=== PATIENT | female | born 1965 | race Caucasian/White ===

== ENCOUNTER 2016-09-11 09:02 | Emergency (ER) | payer OTHER ==
[~2016-09-11] VITALS: Ht 162.6 cm; Wt 117.9 kg
[~2016-09-11 09:02] MED LIST: AMBIEN10 M1 PO; B-121000 MC3 PO; CALCIUM500 M2 PO; CELEXA20 M1 PO; CO Q-10100 MG PO; DAILY MULTIPLE1 EACH PO; FISH OIL 1,0001 EACH PO; GABAPENTIN300 M2 PO; INVEGA6 MG PO; JANUMET 50-1,01 EACH PO; JARDIANCE25 M1 PO; LIPITOR10 M1 PO; NEXIUM20 M1 PO; SINGULAIR10 M1 PO; VITAMIN C500 M8 PO; VITAMIN D1000 UNIT PO; WELCHOL625 MG PO; WELLBUTRIN XL300 M2 PO
[2016-09-11 09:09] VITALS: BP 145/74
--- NOTE | 2016-09-11 09:11 | ED SKIN/ALLERGY COMPLAINT ---
History of Present Illness General Chief Complaint: General Adult Stated Complaint: WOUND TO ABDOMEN ?INFECTED Source: patient, old records, friend Exam Limitations: no limitations Vital Signs & Intake/Output Vital Signs & Intake/Output Vital Signs Date Time Temp Pulse Resp B/P B/P Pulse O2 O2 Flow FiO2 Mean Ox Delivery Rate 09/11 0909 98.0 78 18 145/74 99 Room Air Allergies Coded Allergies: carboplatin (Severe, ANAPHYLAXIS 07/11/15) ciprofloxacin (From CIPRO) (SWELLING AND ITCHING 07/11/15) codeine (SWELLING AND ITCHING 07/11/15) egg (UNKNOWN 07/11/15) iodine (UNKNOWN 07/11/15) Reconcile Medications Amoxicillin 875 MG TABLET 1 TAB PO BID wound infection Ascorbic Acid (Vitamin C) (Unknown Strength) TABLET (Unknown Dose) PO DAILY SUPPLEMENT (Reported) Atorvastatin Calcium (Lipitor) 10 MG TABLET 1 TAB PO DAILY CHOLESTEROL ( Reported) Bupropion HCl (Wellbutrin XL) 300 MG TAB.ER.24H 1 TAB PO DAILY MENTAL HEALTH (Reported) Calcium Carbonate (Calcium) (Unknown Strength) TAB.CHEW (Unknown Dose) PO DAILY SUPPLEMENT (Reported) Cholecalciferol (Vitamin D3) (Vitamin D) 1,000 UNIT TABLET 1 TAB PO DAILY SUPPLEMENT (Reported) Citalopram Hydrobromide (Celexa) 20 MG TABLET 1 TAB PO DAILY MENTAL HEALTH ( Reported) Colesevelam Hydrochloride (Welchol) 625 MG TABLET 3 TAB PO DAILY UNKNOWN ( Reported) Cyanocobalamin (Vitamin B-12) (B-12) 1,000 MCG TABLET 1 TAB PO DAILY SUPPLEMENT (Reported) Empagliflozin (Jardiance) 25 MG TABLET 1 TAB PO DAILY DIABETES (Reported) Esomeprazole Magnesium (Nexium) 20 MG CAPSULE.DR 1 CAP PO DAILY GI (Reported) Fenofibrate 160 MG TABLET 1 TAB PO DAILY CHOLESTEROL (Reported) Gabapentin 300 MG CAPSULE 1 CAP PO TID MENTAL HEALTH (Reported) Montelukast Sodium (Singulair) 10 MG TABLET 1 TAB PO DAILY ALLERGIES ( Reported) Multivitamin (Daily Multiple Vitamin) 1 EACH TABLET 1 TAB PO DAILY SUPPELMENT (Reported) [place]-3 Fatty Acids/Fish Oil (Fish Oil 1,000 MG Capsule) 340 MG-1,000 MG CAPSULE 1 CAP PO TID SUPPLEMENT (Reported) Paliperidone (Invega) 6 MG TAB.ER.24 2 TAB PO DAILY MENTAL HEALTH (Reported) Sitagliptin Phos/Metformin HCl (Janumet 50-1,000 MG Tablet) 50 MG-1,000 MG TABLET 1 TAB PO BID DIABETES (Reported) Sulfamethoxazole/Trimethoprim (Bactrim Ds Tablet) 800 MG-160 MG TABLET 1 TAB PO BID INFECTION Ubidecarenone (Co Q-10) 100 MG CAPSULE 1 CAP PO DAILY SUPPLEMENT (Reported) Zolpidem Tartrate (Ambien) 10 MG TABLET 0.5 TAB PO QPM SLEEP (Reported) Triage Note: pt to ed for acute infection of a chronic abd wound, pt reporting she has had the abd wound for approx 4 years (self manages, has not seen wound center) and noticed this am that wound appeared to have "yellow drainage" denies fever, weakness, n/v/d. stating she feels well otherwise. Triage Nurses Notes Reviewed? yes HPI: Patient is a 51-year-old female with past medical history of diabetes and chronic abdominal wound presents complaining of possible infection to the abdominal wound. Patient reports that wound has been present for at least 4-5 years. Over the past 1 week patient has noticed increasing discharge from the area. Drainage was worse today. Drainage is whitish and sometimes has a yellow tinge to it. Patient has chronic diffuse abdominal pain, no significant change to her abdominal pain. Patient has seen multiple doctors and surgeons who has told her that it will take time for the wound to heal. Patient denies fevers, chills, nausea, vomiting, redness spreading from the wound. (RADHA RODRIGUEZ) Past History Travel History Traveled to [place] past 21 day No Medical History Any Pertinent Medical History? see below for history Neurological: NONE EENT: cataracts Cardiovascular: NONE Respiratory: sleep apnea Gastrointestinal: NONE Hepatic: NONE Renal: NONE Musculoskeletal: NONE Psychiatric: depression anxiety schizo affective d/o Endocrine: type 2 diabetes Blood Disorders: NONE Cancer(s): ovarian ca (remission) Pneumonia Vaccine: 03/11/09 Influenza Vaccine: 02/08/06 Surgical History Surgical History: hysterectomy, multiple hernia surgeries Psychosocial History Who do you live with Patient/Self Services at Home Nursing What is your primary language Kinyarwanda Tobacco Use: Current Daily Use Daily Tobacco Use Amount/Type: => 5 Cigarettes daily ETOH Use: denies use Illicit Drug Use: denies illicit drug use Family History Hx Contributory? No (RADHA RODRIGUEZ) Review of Systems Review of Systems Constitutional: Denies: chills, fever. EENTM: Reports: no symptoms. Respiratory: Reports: no symptoms. Cardiovascular: Reports: no symptoms. GI: Reports: see HPI. Genitourinary: Reports: no symptoms. Musculoskeletal: Reports: no symptoms. Skin: Reports: see HPI. Neurological/Psychological: Reports: no symptoms. Hematologic/Endocrine: Reports: other (hx diabetes). Immunologic/Allergic: Reports: no symptoms. (RADHA RODRIGUEZ) Physical Exam Physical Exam General Appearance: well developed/nourished, alert, awake, obese Head: atraumatic, normal appearance Eyes: Bilateral: normal appearance. Ears, Nose, Throat: hearing grossly normal Neck: normal inspection, supple, full range of motion Respiratory: no respiratory distress Gastrointestinal: 4.5 cm x 4.5 cm wound to the mid abdomen. No surrounding erythema or induration. Small amount of granulation tissue present in the wound. No areas of necrosis. Minimal lightly tinged yellow discharge from the wound. Back: normal inspection, normal range of motion Extremities: normal inspection, normal capillary refill, normal range of motion Neurologic/Psych: awake, alert, oriented x 3, normal gait Skin: see abdominal exam, see diagram Diagram Chest, Abdomen, Back: 1) 4.5 cm x 4.5 cm wound that extends through the epidermal layer to the superficial dermal layer. surrounding chronic skin hyperpigmentation. No surrounding erythema or induration (RADHA RODRIGUEZ) Progress Differential Diagnosis: abscess/cellulitis, intra-abdominal infection, necrotizing fasciitis Plan of Care: Orders Procedure Date/time Status LACTIC ACID 09/12 923 Complete COMPREHENSIVE METABOLIC PANEL 09/12 923 Complete CBC WITHOUT DIFFERENTIAL 09/12 923 Complete Laboratory Tests 09/11/16 0955: Anion Gap 12, Estimated GFR > 60, BUN/Creatinine Ratio 17.1, Glucose 126 H, Lactic Acid 2.8 H, Calcium 8.8, Total Bilirubin 0.3, AST 22, ALT 36, Alkaline Phosphatase 96, Total Protein 6.4, Albumin 3.4 L, Globulin 3.0, Albumin/ Globulin Ratio 1.1, CBC w Diff NO MAN DIFF REQ, RBC 4.32, MCV 84.2, MCH 27.4, RDW 15.5 H, MPV 7.5, Gran % 59.5, Lymphocytes % 29.5, Monocytes % 6.4, Eosinophils % 3.5, Basophils % 1.1, Absolute Granulocytes 4.5, Absolute Lymphocytes 2.2, Absolute Monocytes 0.5, Absolute Eosinophils 0.3, Absolute Basophils 0.1, PUBS MCHC 32.5 L 09/11/2016 10:50:18 AM: Results of labs discussed with patient. Elevated lactic acid, patient afebrile, nontoxic-appearing, normal white blood cell count, no significant tenderness to the area. I feel that patient is stable for discharge with oral antibiotics and close follow up with the wound care clinic and her primary care doctor. Signs and symptoms to monitor for regarding infection and returning to the emergency department were discussed with patient. (RADHA RODRIGUEZ) Departure Departure Time of Disposition: 1044 Disposition: HOME OR SELF CARE Condition: Stable Clinical Impression Primary Impression: Wound infection Secondary Impressions: Elevated lactic acid level Referrals: LAURA LEVIN MD (PCP/Family) Additional Instructions: Follow up with the [facility] wound care clinic. Call today for appointment. Also follow up with your primary doctor for further evaluation. Return to the ER if redness spreading from the borders of the wound, fevers, any areas of black develop to the wound, or worsening of symptoms. Departure Forms: Customer Survey General Discharge Information Prescriptions: Current Visit Scripts Amoxicillin 1 TAB PO BID #14 TAB Sulfamethoxazole/Trimethoprim (Bactrim Ds Tablet) 1 TAB PO BID #14 TAB (RADHA RODRIGUEZ) PA/BLUE CRABBER Co-Sign Statement Statement: ED Attending supervision documentation- [] I saw and evaluated the patient. I have also reviewed all the pertinent lab results and diagnostic results. I agree with the findings and the plan of care as documented in the PA's/BLUE CRABBER's documentation. [X] I have reviewed the ED Record and agree with the PA's/BLUE CRABBER's documentation. [] Additions or exceptions (if any) to the PAs/BLUE CRABBER's note and plan are summarized below: [] (CURTIS MORALES DO)
[2016-09-11] MEDS ORDERED: FENOFIBRATE160 M1 PO (09:54)
[2016-09-11 10:02] LABS: ABSOLUTE BASOPHIL COUNT 0.1 /CUMM (0.0-0.2); ABSOLUTE EOSINOPHIL COUNT 0.3 /CUMM (0.0-0.7); ABSOLUTE GRANULOCYTE CT 4.5 /CUMM (1.4-6.5); ABSOLUTE LYMPH COUNT 2.2 /CUMM (1.2-3.4); ABSOLUTE MONOCYTE COUNT 0.5 /CUMM (0.10-0.60); BASOPHIL % 1.1 % (0.0-2.0); EOSINOPHIL % 3.5 % (0-5); GRANULOCYTE % 59.5 % (42.2-75.2); HEMATOCRIT 36.3 % (37-47); MEAN CORPUSCULAR HGB 27.4 PG (27.0-31.0); MEAN CORPUSCULAR HGB CONC 32.5 G/DL (33.0-37.0); MEAN CORPUSCULAR VOLUME 84.2 FL (81.0-99.0); MEAN PLATELET VOLUME 7.5 FL (7.4-10.4); PLATELET COUNT 390 /CUMM (130-400); RBC DISTRIBUTION WIDTH 15.5 % (11.5-14.5); RED BLOOD CELL CT 4.32 /CUMM (4.20-5.40); WHITE BLOOD CELL COUNT 7.5 /CUMM (4.8-10.8)
[2016-09-11] MEDS ORDERED: BACTRIM DS TAB1 EACH PO (10:46)
[2016-09-11] MEDS ORDERED: AMOXICILLIN875 M1 PO (10:46)
== END 2016-09-11 10:58 ==
LOC: ERH 09:02
PROVIDERS: Physician Assistant
DX: S31.109A Unspecified open wound of abdominal wall, unspecified quadrant without penetration into peritoneal cavity, initial encounter (principal); L08.9 Local infection of the skin and subcutaneous tissue, unspecified; R74.0 Nonspecific elevation of levels of transaminase and lactic acid dehydrogenase [LDH]

== ENCOUNTER → 2016-11-14 | Day surgery (SDC) | payer OTHER ==
[~2016-11-14] VITALS: Ht 162.6 cm; Wt 117.9 kg
[~2016-11-14] MED LIST changes: +AMOXICILLIN875 M1 PO; +BACTRIM DS TAB1 EACH PO; +FENOFIBRATE160 M1 PO; +LINZESS145 MC1 PO; +ZYRTEC10 M3 PO
--- NOTE | 2016-11-14 14:18 | Operative Report ---
Operative/Inv Procedure Report Surgery Date: 11/14/16 Name of Procedure: Excision of abdominal wall wound centimeterschronic closure 23 cm abdominal wall Pre-Operative Diagnosis: Abdominal wound postop complication Post-Operative Diagnosis: Same Estimated Blood Loss: scant Surgeon/Mainframe Developer: ELIZABETH NORTON MD Anesthesia: moderate sedation Operative/Procedure Note Note: Patient has had remote intra-abdominal surgery, located by chronic abdominal wall wound. This was previously excised and closed but recurred. Patient wears undergarments tightly in the area of the repair. She has had a chronic wound that has not been responsive to local wound care in the wound care center. We have talked about excision and closure. Patient accepts the procedure the alternatives the risks and expected outcomes as chosen to proceed. No guarantees were given in regards to success. She signed informed consent. She was taken to the operating room placed supine on the table intravenous sedation antibiotics were given the abdomen was prepped and draped in usual sterile fashion. Elliptical incision was carried around the lesion for the dimensions described above. It was removed down into the subcutaneous layer. Additional fibrotic base was then further excised. Extensive undermining was done in all directions and tension-free closure was performed with 3 layers for the dimensions described above. Aisha were placed within the skin. Ends dictation
== END ==
LOC: STS 01:28
DX: T81.89XA Other complications of procedures, not elsewhere classified, initial encounter (principal); L98.491 Non-pressure chronic ulcer of skin of other sites limited to breakdown of skin; E11.9 Type 2 diabetes mellitus without complications; Z79.84 Long term (current) use of oral hypoglycemic drugs; E66.9 Obesity, unspecified; Z85.43 Personal history of malignant neoplasm of ovary; D64.9 Anemia, unspecified
CPT/HCPCS: J0131; J0690; J2250; J2405

== ENCOUNTER 2017-09-09 02:36 | Inpatient (IN) | payer OTHER ==
[~2017-09-09] VITALS: Ht 162.6 cm; Wt 114.1 kg
[~2017-09-09 02:36] MED LIST changes: +PROAIR HFA8.5 GM INH
--- NOTE | 2017-09-09 16:09 | Operative Report ---
Operative/Inv Procedure Report Surgery Date: 09/09/17 Name of Procedure: Laparoscopic Sleeve Gastrectomy Pre-Operative Diagnosis: Morbid Obesity BMI 47, DM, BOBO, Hyperlipidemia Post-Operative Diagnosis: Same Estimated Blood Loss: less than 50ml Surgeon/Dental Laboratory Manager: John Beyer DO Anesthesia: general endotracheal tube IV Fluids: 1000 cc Drains: None Specimens: Stomach Complications: None Condition: Stable Operative Indication: This is a 52-year-old female that presented to the office for workup for bariatric surgery. After appropriate workup was completed I discussed with the patient the band, the sleeve, and the gastric bypass. The patient chose to undergo a sleeve gastrectomy. All risks including but not limited to bleeding, infection, leak, stricture, injury to surrounding bowel/esophagus/stomach/liver/ spleen, long-term reflux, DVT/PE, and mortality of 05/999 patients were discussed in detail. The patient understood everything and decided to proceed. Operative/Procedure Note Note: The patient was brought to the operating room and placed on the operating room table in supine position. Venodyne stockings were placed and adequate general endotracheal anesthesia was obtained. The patient was prepped and draped in standard surgical fashion. Began the procedure by making a 2 cm transverse incision supraumbilically and slightly to the left of the midline. Then using a 12 mm clear Visiport and a 10 mm 0 laparoscope, the abdominal cavity was accessed. Great care was taken to go through the anterior rectus sheath, the posterior rectus sheath, and through the peritoneum. Once we entered the peritoneum the abdominal cavity was insufflated to 15 mmHg. Upon initial examination no obvious gross pathology was seen. The patient did have a very large liver. Accessory trocars were placed, 5 mm in the epigastrium for the Tom liver retractor. The retractor was inserted and the liver was retracted anteriorly exposing the hiatus, no hiatal hernia was seen. 5 mm ports were placed in the right and left upper quadrant, a 5 mm left lateral port, and a 15 mm right lateral port. Began the procedure by mobilizing the greater curvature of the stomach approximately 7 cm from the pylorus. Once the retrogastric space was reached the whole greater curvature was mobilized maintaining hemostasis using Harmonic scalpel. Full hiatal dissection was performed, no hiatal hernia was seen. Posterior adhesions were taken down using Harmonic scalpel as well. Once the stomach was adequately mobilized a 38 [place] bougie was inserted and placed along the lesser curvature of the stomach. Once the bougie was in the appropriate position we began creating our sleeve, two 60 mm black staple loads with seamguard followed by three 60 mm purple staple loads with seamguard as well and finished with a 45 mm purple plain load. Great care was taken to leave ample room at the incisura angularis, to prevent any twisting or kinking of the sleeve, to stay lateral to the esophagogastric fat pad, and to do a full fundal excision. At the completion of the staple line the staple line was examined, it appeared intact and some bleeding was noted and controlled with endoclips. The bougie was removed, the sleeve was lying nicely without any twisting or kinking. The resected stomach was removed through the right lateral port site. The port and the left upper quadrant were irrigated until clear. All ports were removed under direct visualization no obvious bleeding was noted. The 15 mm port site fascia was closed using 0 Vicryl suture. The skin was closed using 4-0 Monocryl. Steri-Strips and dressings were placed. The patient was successfully extubated and transferred to the recovery room in stable condition. The patient tolerated the procedure well with no complications. Findings: No hiatal hernia, 38 Fr bougie CC: Bg Anthony MD
--- NOTE | 2017-09-09 16:19 | Surg Short-stay <48hrs Dis Sum ---
Visit Information Visit Dates Admission Date: 09/09/17 Discharge Date: 09/10/17 Surgical Short Stay DC Summary Admission Diagnosis: Morbid Obesity (BMI 47), DM, BOBO, Hyperlipidemia Final Diagnosis: SAME ABOVE, S/P Surgery Date: 09/09/17 Name of Procedure: Laparoscopic Sleeve Gastrectomy Procedure(s): Surgery Date: 09/09/17 Name of Procedure: Laparoscopic Sleeve Gastrectomy Summary/Significant Findings: Electively scheduled laparoscopic sleeve gastrectomy on 09/09/17 by for history of morbid obesity (BMI 47), DM, BOBO, and Hyperlipidemia. Started on a stage 1 bariatric diet post-operatively. Pain control transitioned from iv to oral medication. Accuchecks monitored with sliding scale coverage as needed, while her home meds for diabetes were intentionally stopped. No lovenox teaching necessary according to her pre-operative risk assessment. Condition at Discharge: stable Discharge Disposition: home or self care Discharge instructions provided to patient/family: Yes Post discharge follow-up plan: one week follow up with Copies to: Bg Anthony MD
--- NOTE | 2017-09-09 16:23 | Patient Discharge Instructions ---
Discharge Instructions General Discharge Information You were seen/treated for: Morbid Obesity (BMI 47), DM, BOBO, Hyperlipidemia You had these procedures: Surgery Date: 09/09/17 Name of Procedure: Laparoscopic Sleeve Gastrectomy Watch for these problems: fever>101.3, increased pain, redness/swelling/drainage, dizziness, shortness of breath, chest pains. No bath, but you may shower: Yes Other wound care: ok to remove outer dressings. leave white steri strips in place. keep incisions clean & dry. Diet Continue normal diet: No Recommended Diet: Bariatric Additional DIET Information: weekly bariatric stage diet advancement as tolerated, as directed Activity Full Activity/No Limits: No Activity Self Limited: Yes Pounds, do NOT lift more than: 10 Additional ACTIVITY Info: walk frequently Acute Coronary Syndrome Inclusion Criteria At DC or during hospital stay patient has or had the following: ACS DIAGNOSIS No Discharge Core Measures Meds if any: Prescribed or Continued at Discharge Meds if any: NOT Prescribed or Continued at Discharge Congestive Heart Failure Inclusion Criteria At DC or during hospital stay patient has or had the following: CHF DIAGNOSIS No Discharge Core Measures Meds if any: Prescribed or Continued at Discharge Meds if any: NOT Prescribed or Continued at Discharge Cerebrovascular accident Inclusion Criteria At DC or during hospital stay patient has or had the following: CVA/TIA Diagnosis No Discharge Core Measures Meds if any: Prescribed or Continued at Discharge Meds if any: NOT Prescribed or Continued at Discharge Venous thromboembolism Inclusion Criteria VTE Diagnosis No VTE Type NONE VTE Confirmed by (Test) NONE Discharge Core Measures - Per Current guidelines, there needs to be overlap - treatment for the first 5 days of Warfarin therapy. - If discharged on Warfarin prior to 5 days of - overlap therapy, the patient will need to be - assessed for post discharge needs including - *Post discharge parental anticoagulation - *Warfarin and/or parental anticoagulation education - *Follow up date to check INR post discharge At least 5 days overlap therapy as Inpatient No Meds if any: Prescribed or Continued at Discharge Note: Overlap Therapy is Warfarin and Anticoagulant Meds if any: NOT Prescribed or Continued at Discharge
[2017-09-09] MEDS ORDERED: OXYCODONE HCL5 M1 PO (16:26)
--- NOTE | 2017-09-09 16:28 | Admission Core Measures ---
Acute Coronary Syndrome (CM) ACS Core Measures Acute Coronary Syndrome Diagnosis No Congestive Heart Failure (NEW) CHF Core Measures Congestive Heart Failure Diagnosis No Cerebrovascular Accident (NEW) CVA Core Measures CVA/TIA Diagnosis No Venous Thromboembolism VTE Core Alyssa (View Protocol) VTE Risk Factors Surgery No Mechanical VTE Prophylaxis d/t N/A MechProphylax Ordered No VTE Pharm Prophylaxis d/t NA PharmProphylax ordered Problem List As ranked by this Provider includes Assessment & Plan 1. S/P laparoscopic sleeve gastrectomy 2. Sleep apnea 3. Diabetes 4. Morbid obesity HOME MEDS Home Med List Albuterol Sulfate (Proair Hfa) 90 MCG HFA.AER.AD 2 PUF INH Q4-6 PRN PRN COPD (Reported) Atorvastatin Calcium (Lipitor) 10 MG TABLET 1 TAB PO DAILY CHOLESTEROL ( Reported) Bupropion HCl (Wellbutrin XL) 300 MG TAB.ER.24H 1 TAB PO DAILY MENTAL HEALTH (Reported) Calcium Carbonate (Calcium) (Unknown Strength) TAB.CHEW (Unknown Dose) PO DAILY SUPPLEMENT (Reported) Cholecalciferol (Vitamin D3) (Vitamin D) 1,000 UNIT TABLET 1 TAB PO DAILY SUPPLEMENT (Reported) Citalopram Hydrobromide (Celexa) 20 MG TABLET 1 TAB PO DAILY MENTAL HEALTH ( Reported) Colesevelam Hydrochloride (Welchol) 625 MG TABLET 3 TAB PO DAILY UNKNOWN ( Reported) Empagliflozin (Jardiance) 25 MG TABLET 1 TAB PO DAILY DIABETES (Reported) Esomeprazole Magnesium (Nexium) 20 MG CAPSULE.DR 1 CAP PO DAILY GI (Reported) Fenofibrate 160 MG TABLET 1 TAB PO DAILY CHOLESTEROL (Reported) Gabapentin 300 MG CAPSULE 1 CAP PO TID MENTAL HEALTH (Reported) Linaclotide (Linzess) 145 MCG CAPSULE 1 CAP PO DAILY PRN CONSTIPATION ( Reported) Montelukast Sodium (Singulair) 10 MG TABLET 1 TAB PO DAILY ALLERGIES ( Reported) Multivitamin (Daily Multiple Vitamin) 1 EACH TABLET 1 TAB PO DAILY SUPPELMENT (Reported) Oxycodone HCl 5 MG TABLET 1-2 TAB PO Q4-6 PRN PRN pain control Paliperidone (Invega) 6 MG TAB.ER.24 2 TAB PO DAILY MENTAL HEALTH (Reported) Sitagliptin Phos/Metformin HCl (Janumet 50-1,000 MG Tablet) 50 MG-1,000 MG TABLET 1 TAB PO BID DIABETES (Reported) Zolpidem Tartrate (Ambien) 10 MG TABLET 0.5 TAB PO QPM SLEEP (Reported)
[2017-09-09 17:30] VITALS: BP 162/82
--- NOTE | 2017-09-09 19:59 | PN- General Surgery ---
Subjective Subjective: POC feeling ok, taking some liquids. +void x2. no cp/sob. some nausea, improving. no vomiting. no flatus/bm Objective Vital Signs and I&Os Vital Signs Date Time Temp Pulse Resp B/P B/P Pulse O2 O2 Flow FiO2 Mean Ox Delivery Rate 09/09 1730 97.9 78 19 162/82 94 Nasal 3.0L Cannula 09/09 1700 94 Nasal 3.0L Cannula 09/09 1700 94 Nasal 3.0L Cannula Physical Exam: GEN- NAD CARD- S1S2 RRR PULM- CTAB ABD- soft, obese,ttp bl uq, incisions dressed wtih scant serosang staining, +bs EXT-calves soft nt, alps on bl Assessment/Plan Assessment/Plan A- POD0 sp lap sleeve gastrectomy, with mild nausea, otherwise stable. P- prn pain meds stg 1 diet tonight, then npo p mn for ?ugi in am titrate o2 off hold home dm meds, riss per fs ancef x23hr postop oob, ambulate hep sq, alps will dw attending Core Measures Venous Thromboembolism VTE Risk Factors Surgery No Mechanical VTE Prophylaxis d/t N/A MechProphylax Ordered No VTE Pharm Prophylaxis d/t NA PharmProphylax ordered
[2017-09-09 21:30] VITALS: BP 128/70
[2017-09-10 06:32] VITALS: BP 130/78
--- NOTE | 2017-09-10 08:07 | PN- Bariatrics ---
See Addendum Subjective Subjective: Pt. reports mild nausea over night. No emesis. Did not take much liquids. States she is fairly comfortable, passing flatus. Objective Vital Signs and I&Os Vital Signs Date Time Temp Pulse Resp B/P B/P Pulse O2 O2 Flow FiO2 Mean Ox Delivery Rate 09/11 631 98.5 67 20 130/78 93 Nasal 4.0L Cannula 09/10 0000 CPAP 09/09 2214 Nasal 3.0L Cannula 09/09 2200 94 CPAP 09/09 2130 97.9 72 19 128/70 93 Nasal 4.0L Cannula 09/09 1730 97.9 78 19 162/82 94 Nasal 3.0L Cannula 09/09 1700 94 Nasal 3.0L Cannula 09/09 1700 94 Nasal 3.0L Cannula Intake & Output 09/10 1600 09/10 0800 / 0000 / 1600 09/09 0800 09/09 0000 Intake Total 750 1565 Output Total 400 1175 Balance 350 390 Intake, IV 750 1250 Intake, Oral 315 Output, Urine 400 1175 Patient 252 lb 259 lb Weight Weight Bed scale Measurement Method Alert, appropriate, no distress. Lungs are clear bilat. Heart regular Abdomen obese with multiple old well healed scars. Port sites with dressings are clean, dry. No active bleeding. Extr. without edema. Assessment/Plan Assessment/Plan 52 y o female with morbid obesity and multiple med. hx , s/p lap. gastric sleeve POD#1. Stable hemodynamics, afebrile. Abdominal exam is as expected, soft without tenderness, port sites without infection. Has c/o nausea, awaiting UGI this morning. If unremarkable, then will initiate stage 1 diet and hep lock IVF. Blood sugars are stable, 156, 154. Pain meds. as needed. Increase ambulation. Discharge home this afternoon if continues to di well. Pt. has script for Lovenox at home Core Measures Venous Thromboembolism VTE Risk Factors Surgery No Mechanical VTE Prophylaxis d/t N/A MechProphylax Ordered No VTE Pharm Prophylaxis d/t NA PharmProphylax ordered
[2017-09-10 09:48] LABS: ABSOLUTE BASOPHIL COUNT 0 /CUMM (0.0-0.2); ABSOLUTE EOSINOPHIL COUNT 0.1 /CUMM (0.0-0.7); ABSOLUTE GRANULOCYTE CT 5.3 /CUMM (1.4-6.5); ABSOLUTE LYMPH COUNT 2.6 /CUMM (1.2-3.4); ABSOLUTE MONOCYTE COUNT 0.7 /CUMM (0.10-0.60); BASOPHIL % 0.3 % (0.0-2.0); EOSINOPHIL % 0.8 % (0-5); GRANULOCYTE % 61.1 % (42.2-75.2); HEMATOCRIT 38.2 % (37-47); MEAN CORPUSCULAR HGB 27.9 PG (27.0-31.0); MEAN CORPUSCULAR HGB CONC 32.7 G/DL (33.0-37.0); MEAN CORPUSCULAR VOLUME 85.3 FL (81.0-99.0); MEAN PLATELET VOLUME 8.4 FL (7.4-10.4); PLATELET COUNT 364 /CUMM (130-400); RBC DISTRIBUTION WIDTH 15.9 % (11.5-14.5); RED BLOOD CELL CT 4.48 /CUMM (4.20-5.40); WHITE BLOOD CELL COUNT 8.6 /CUMM (4.8-10.8)
--- NOTE | 2017-09-10 12:31 | RADIOLOGY REPORT ---
EXAMINATION: FL UPPER GI SERIES CLINICAL INFORMATION: 52-year-old female with sleeve gastrectomy, postop day 1. Gastrografin upper GI is requested to rule out leak. COMPARISON: None TECHNIQUE: A single contrast upper GI series with fluoroscopy and spot imaging was performed. The patient ingested Gastrografin without difficulty and was evaluated in the upright and recumbent positions. FINDINGS: The security representative radiograph shows postsurgical changes within the left upper quadrant of the abdomen. Few surgical clips are also noted at right lower abdomen and within the visualized part of the pelvis. Intermittent small sliding hiatal hernia is noted. The contrast was seen to flow from the esophagus into the residual stomach without any difficulty. Mild delayed clearance of the contrast was noted from the fundus to the rest of the residual stomach. Subsequently, the contrast was seen to pass from the stomach into the duodenum and eventually into the proximal small bowel loops. There is no evidence of any contrast extravasation noted. FLUOROSCOPY TIME: 52 seconds NUMBER OF IMAGES: 9 sequences IMPRESSION: 1. Mild delayed clearance of contrast was noted from the fundus to the rest of the residual stomach. 2. No evidence of any contrast leak.
[2017-09-10 14:45] VITALS: BP 124/70
[2017-09-10] MEDS ORDERED: OXYCODONE HCL5 M1 PO (15:02)
== END 2017-09-10 15:50 | DRG 621 ==
LOC: SDA 02:36 → 2NB 02:36 → ENRESERV 16:01 → ENTRNSPT 16:51 → EDTRNSPT 17:00 → EDTRNSPTSTS 17:00 → 2NB 17:03 → CMPTRNSPT 17:12 → ENPENDDIS 09-10 14:10 → 2NB 09-10 15:50
PROVIDERS: Physician Assistant
PROC: 3E0T3BZ Introduction of Anesthetic Agent into Peripheral Nerves and Plexi, Percutaneous Approach (ICD-10-PCS; principal; 2017-09-09)
PROC: 0DB64Z3 Excision of Stomach, Percutaneous Endoscopic Approach, Vertical (ICD-10-PCS; principal; 2017-09-09)
DX: E66.01 Morbid (severe) obesity due to excess calories (principal); E11.9 Type 2 diabetes mellitus without complications; Z68.41 Body mass index [BMI] 40.0-44.9, adult; Z79.51 Long term (current) use of inhaled steroids; Z79.84 Long term (current) use of oral hypoglycemic drugs; E78.5 Hyperlipidemia, unspecified; G47.33 Obstructive sleep apnea (adult) (pediatric); J44.9 Chronic obstructive pulmonary disease, unspecified; F32.9 Major depressive disorder, single episode, unspecified; F41.9 Anxiety disorder, unspecified; K21.9 Gastro-esophageal reflux disease without esophagitis; I10 Essential (primary) hypertension; G25.81 Restless legs syndrome; Z87.891 Personal history of nicotine dependence; Z85.43 Personal history of malignant neoplasm of ovary; Z92.21 Personal history of antineoplastic chemotherapy; Z88.1 Allergy status to other antibiotic agents; Z88.5 Allergy status to narcotic agent; Z88.8 Allergy status to other drugs, medicaments and biological substances
CPT/HCPCS: 2NBP; 36592; 74240; 82436; 88307; J0131; J0690; J1100; J1644; J1815; J1885; J2405; J2765; J3250; J3490; J7042